=== PATIENT | male | born 1990 | race Caucasian/White ===

== ENCOUNTER 2018-09-18 15:45 | Emergency (ER) | payer OTHER ==
[~2018-09-18] VITALS: Ht 172.7 cm; Wt 72.6 kg
[2018-09-18 17:57] VITALS: BP 137/81
[2018-09-19 09:08] LABS: HEP B SURFACE Ab(ANTI-HBS Reactive (()); HEPATITIS C VIRUS AB 0.1 (0.0-0.9)
== END 2018-09-18 17:58 | disposition home or self-care (01) ==
LOC: ER 15:45
PROVIDERS: Nurse Practitioner
DX: Z77.21 Contact with and (suspected) exposure to potentially hazardous body fluids (principal)